=== PATIENT | male | born 1960 | race Caucasian/White ===

== ENCOUNTER → 2017-09-05 | Outpatient (CLI) | payer BC ==
[~2017-09-05] MED LIST: ACET-1256 PO; ASCO500T16 PO; ASPI-435 PO; CLC100 PO; HYDR-5688 PO; LANS30CA63 PO; LISI-726 PO; LXP/20 PO; LXP10 PO; RANI150T2 PO; SPIR25TA PO; TRAZ1TAB48 PO; ULT/50 PO; ZCR40 PO; [UNRECOGNIZED DRUG - CODE] IM
[2017-09-05 15:22] LABS: HEMATOCRIT 49.2 % (42-52); HEMOGLOBIN 17.4 g/dL (14.0-18.0); MEAN CELL VOLUME 91.4 fL (80-100); MEAN CORPUSCULAR HEMOGLOBIN 32.3 pg (25-34); MEAN CORPUSCULAR HGB CONC 35.4 g/dl (32-36); MEAN PLATELET VOLUME 9.9 fL (7.4-10.4); PLATELET COUNT 254 K/uL (130-400); RED CELL DISTRIBUTION WIDTH CV 13.3 % (11.5-14.5); RED CELL DISTRIBUTION WIDTH SD 44.2 fL (36.4-46.3)
== END | disposition home or self-care (01) ==
LOC: C.LAB 14:41
DX: I10 Essential (primary) hypertension (principal); E78.5 Hyperlipidemia, unspecified

== ENCOUNTER → 2017-10-30 | Outpatient (CLI) | payer OTHER ==
[~2017-10-30] MED LIST changes: -ACET-1256 PO; -CLC100 PO; -LISI-726 PO; +LSN20 PO; +OPTIRAY 320 IV PRN; -SPIR25TA PO; +TRAZ-120 PO; -TRAZ1TAB48 PO; -ULT/50 PO; -[UNRECOGNIZED DRUG - CODE] IM
--- NOTE | 2017-10-30 12:11 | DIAGNOSTIC IMAGING REPORT ---
SOFT TISSUE NECK WITH CLINICAL HISTORY: PAROTITIS TECHNIQUE: Transaxial acquisition with multi axial reformatted images. COMPARISON STUDY: Soft tissue ultrasound 07/23/2016 FINDINGS: All major salivary glands are grossly unremarkable. The Parotid and submandibular glands in terms of substance are symmetric. There is possibly a trace of infiltrative change posterior to the posterior margin of the right parotid and slightly inferior to the right parotid. This may indicate a degree of reactive edematous change and or post inflammatory soft tissue scarring. No evidence for abscess or collection. The substance of the parotid remains unremarkable. No abnormal calcifications are identified. There are several small nodes in the cervical chains bilaterally. These are all less than 6 mm. There is no evidence for significant or bulky cervical adenopathy. The glottic and subglottic regions are unremarkable. There is no evidence for airway compromise. IMPRESSION: 1. Trace amount of infiltrative change posterior and inferior to the right parotid.. 2. The parotid and submandibular glands themselves are unremarkable. 3. The slight infiltrative change potentially is reactive edematous tissue, versus postinflammatory scarring 4. No evidence for mass, collection, or abscess. 5. No abnormal calcifications. 6. No significant cervical adenopathy. The above report was generated using voice recognition software. It may contain grammatical, syntax or spelling errors. Electronically signed by: Jesse Scherer M.D. 10/30/2017 12:09 PM Dictated Date/Time: 10/30/2017 12:02 PM
== END | disposition home or self-care (01) ==
LOC: C.CTS 11:37
DX: K11.20 Sialoadenitis, unspecified (principal)

== ENCOUNTER → 2017-11-21 | Outpatient (CLI) | payer OTHER ==
[~2017-11-21] MED LIST changes: -OPTIRAY 320 IV PRN
[2017-11-21 12:26] LABS: BASO % 0.4 %; BASO ABS # 0.04 K/uL (0-0.2); EOS % 2.6 %; EOS ABS # 0.25 K/uL (0-0.5); HEMATOCRIT 50.5 % (42-52); IG# 0.04 K/uL (0.00-0.02); LYMPH % 23.4 %; LYMPH ABS # 2.25 K/uL (1.2-3.4); MEAN CORPUSCULAR HEMOGLOBIN 32.4 pg (25-34); MEAN CORPUSCULAR HGB CONC 35.6 g/dl (32-36); MEAN PLATELET VOLUME 9.9 fL (7.4-10.4); MONO % 7.3 %; NEUT % 65.9 %; NEUT ABS # 6.34 K/uL (1.4-6.5); PLATELET COUNT 268 K/uL (130-400); RED CELL DISTRIBUTION WIDTH CV 13.3 % (11.5-14.5); WHITE BLOOD COUNT 9.62 K/uL (4.8-10.8)
[2017-11-21 12:37] LABS: ALBUMIN 3.8 gm/dl (3.4-5.0); ALT/SGPT 43 U/L (12-78); AST/SGOT 33 U/L (15-37); BLOOD UREA NITROGEN 9 mg/dl (7-18); CALCIUM 9.4 mg/dl (8.5-10.1); CARBON DIOXIDE 30 mmol/L (21-32); CHOLESTEROL 132 mg/dl (0-200); CREATININE 1.03 mg/dl (0.60-1.40); GLUCOSE 97 mg/dl (70-99); LIPASE 115 U/L (73-393); POTASSIUM 4.7 mmol/L (3.5-5.1); SODIUM 136 mmol/L (136-145)
[2017-11-21 12:44] LABS: ALKALINE PHOSPHATASE 69 U/L (45-117); LDL CHOLESTEROL CALCULATED 66 mg/dl
[2017-11-21 12:54] LABS: HEMOGLOBIN A1C 5.9 % (4.5-5.6)
[2017-11-24 14:40] LABS: ANA SCREEN TC 249X NEGATIVE (NEGATIVE)
== END | disposition home or self-care (01) ==
LOC: C.LAB 10:50
DX: I10 Essential (primary) hypertension (principal); E78.5 Hyperlipidemia, unspecified; K85.90 Acute pancreatitis without necrosis or infection, unspecified; M19.90 Unspecified osteoarthritis, unspecified site; R53.83 Other fatigue